=== PATIENT | female | born 2000 | race Native Hawaiian/Other Pacific Islander ===

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

== ENCOUNTER 2019-01-14 11:43 | Outpatient (CLI) | payer OTHER ==
[~2019-01-14] VITALS: Ht 160 cm; Wt 43.5 kg
[2019-01-14 11:48] VITALS: BP 107/75; TEMP 98.7
== END 2019-01-14 13:00 | disposition home or self-care (01) ==
LOC: INF 11:43
DX: E86.0 Dehydration (principal)
CPT/HCPCS: 96360